=== PATIENT | female | born 1995 | race African-American/Black ===

== ENCOUNTER 2017-11-30 21:17 | Observation (INO) | payer MEDICAID ==
[~2017-11-30] VITALS: Ht 157.5 cm; Wt 63.5 kg
[2017-11-30] MEDS ORDERED: PNV1TABL76 MT (21:56)
[2017-11-30] MEDS ORDERED: LACTATED RINGERS 1,000 ML IV SCH (22:00)
[2017-11-30 22:53] LABS: CLARITY URINE CLEAR (CLEAR); COLOR URINE YELLOW (YELLOW); KETONES URINE NEGATIVE (NEGATIVE); LEUKOCYTE ESTERASE URINE NEGATIVE (NEGATIVE); NITRITE URINE NEGATIVE (NEGATIVE); OCCULT BLOOD URINE NEGATIVE (NEGATIVE); PH URINE 7.5 (4.5-8.0); PROTEIN URINE NEGATIVE (NEGATIVE); SPECIFIC GRAVITY URINE 1.009 (1.005-1.030); UROBILINOGEN URINE 0.2 E.U./dL (0.2-1.0)
[2017-11-30] MEDS ORDERED: TERBUTALINE SULFATE 1MG/ML VIAL SUBCUT PRN (23:00)
== END 2017-12-01 01:05 | disposition home or self-care (01) ==
LOC: L&D 21:17
PROVIDERS: ADMIT Specialist; ATTEND Specialist
DX: O26.892 Other specified pregnancy related conditions, second trimester (principal); R10.30 Lower abdominal pain, unspecified; O26.852 Spotting complicating pregnancy, second trimester; Z3A.27 27 weeks gestation of pregnancy
CPT/HCPCS: 76815; 81003; 82731; 96360; 96361; 96372; 99281; G0378; J3105